=== PATIENT | male | born 1975 | race Caucasian/White ===

== ENCOUNTER → 2022-08-14 | Outpatient (CLI) | payer OTHER | END | disposition home or self-care (01) | LOC: RADMN 15:11 | PROVIDERS: ATTEND Internal Medicine Cardiovascular Disease | DX: G93.89 Other specified disorders of brain (principal); J32.3 Chronic sphenoidal sinusitis; J32.0 Chronic maxillary sinusitis; R29.818 Other symptoms and signs involving the nervous system; I63.9 Cerebral infarction, unspecified | CPT/HCPCS: 70551 ==